=== PATIENT | female | born 1965 | race Caucasian/White ===

== ENCOUNTER → 2017-02-14 | Outpatient (CLI) | payer BC ==
[~2017-02-14] MED LIST: ATIVAN1 MG PO; Ativan PO; BUPROPION XL300 MG; BUSPAR30 MG; CARAFATE100 MG/ML PO; COZAAR25 MG PO; CYANOCOBAL1000 MCG/2 IM; Cozaar PO; DEPO-PROVER150 MG/ML IM; Depo-Provera IM; ERGOCALCIF50000 UNIT PO; FLINTSTONES E100 MCG PO; FLUOXETINE HCL20 MG; HYDROCHLOROTHIA25 MG PO; Hydrodiuril,Oretic,E PO; LOSARTAN POTASS25 MG; MEDROXYPROGESTERONE; MULTIVITAMIN1 EAC2 PO; OXYCODONE HCL15 MG; OXYCODONE HCL15 MG PO; PANTOPRAZOLE SO40 MG; PANTOPRAZOLE SO40 MG PO; PRILOSEC40 MG PO; PROZAC20 MG PO; PROzac PO; RANITIDINE HCL75 MG PO; TEMAZEPAM30 MG; THIAMINE HCL100 MG PO; Vicodin,Norco 5/325 PO; WELLBUTRIN XL150 MG PO; Wellbutrin XL PO; ZOFRAN ODT4 MG PO; oxyCODONE PO
== END | disposition home or self-care (01) ==
DX: R26.2 Difficulty in walking, not elsewhere classified (principal); M17.11 Unilateral primary osteoarthritis, right knee; M25.561 Pain in right knee; M25.661 Stiffness of right knee, not elsewhere classified; M62.81 Muscle weakness (generalized)
CPT/HCPCS: 97110 GP; 97150 GO; 97161 GP; 97165 GO

== ENCOUNTER 2017-02-27 06:50 | Inpatient (IN) | payer BC ==
[~2017-02-27] VITALS: Ht 170.2 cm; Wt 133.6 kg
[~2017-02-27 06:50] MED LIST changes: +METFORMIN HCL500 M4 PO; +NEURONTIN100 MG PO; +OMEPRAZOLE40 M1 PO
[2017-02-27 07:38] LABS: POINT-OF-CARE METER ID UU13113694
[2017-02-27 07:42] VITALS: BP 189/87
[2017-02-27 08:15] VITALS: BP 134/66
[2017-02-27 09:52] LABS: INTERNAL CONTROL VALID? YES
[2017-02-27 12:26] LABS: HEMATOCRIT 39.4 % (36.0-46.0); MCH 31.1 PG (29.0-34.0); MCHC 32.5 G/DL (30.0-36.0); MCV 95.9 FL (83-99); MEAN PLAT.VOLUME 10.8 uM^3 (9.5-12.4); PLATELET COUNT 282 K/uL (156-360); RBC DIS.WIDTH-CV 12.3 % (11.8-14.6); RBC DIS.WIDTH-SD 43.8 % (39-53); RED BLOOD COUNT 4.11 M/uL (3.80-5.20); WHITE BLOOD COUNT 7.7 K/uL (4.1-10.2)
[2017-02-27 13:00] VITALS: BP 152/70
[2017-02-27 13:10] LABS: POINT-OF-CARE METER ID UU13113712
[2017-02-27 15:44] VITALS: BP 139/65
[2017-02-27 16:14] LABS: POINT-OF-CARE METER ID UU13113712
[2017-02-27 20:24] VITALS: BP 178/98
[2017-02-27 21:51] LABS: POINT-OF-CARE METER ID UU13113712
[2017-02-28 00:30] VITALS: BP 191/84
[2017-02-28 04:14] VITALS: BP 145/68
[2017-02-28 06:45] LABS: HEMATOCRIT 36.4 % (36.0-46.0); MCV 95.5 FL (83-99)
[2017-02-28 06:54] LABS: ANION GAP 9 MEQ/L (2-14); CHLORIDE 99 MEQ/L (99-109); GFR ESTIMATE (CALCULATED) > 59 mL/min/; GLUCOSE 132 mg/dL (70-99); POTASSIUM 3.9 MEQ/L (3.7-5.4); SAMPLE HEMOLYSIS CHECK 0; SAMPLE ICTERIC CHECK 0; SAMPLE LIPEMIA CHECK 0; SODIUM 133 MEQ/L (136-147); UREA NITROGEN (BUN) 11 mg/dL (9-23)
[2017-02-28 08:00] VITALS: BP 195/94
[2017-02-28 11:49] VITALS: BP 148/70
[2017-02-28 11:51] LABS: POINT-OF-CARE METER ID UU13113712
[2017-02-28 16:05] VITALS: BP 151/73
[2017-02-28 16:47] LABS: POINT-OF-CARE METER ID UU13113712
[2017-02-28 20:03] VITALS: BP 181/75
[2017-02-28 21:50] LABS: POINT-OF-CARE METER ID UU13113712
[2017-03-01 00:30] VITALS: BP 174/74
[2017-03-01 04:25] VITALS: BP 148/69
[2017-03-01 07:31] LABS: POINT-OF-CARE METER ID UU13113712
[2017-03-01 08:00] VITALS: BP 136/61
[2017-03-01] MEDS ORDERED: SENNA PLUS TAB1 EACH PO (08:15)
[2017-03-01] MEDS ORDERED: CELECOXIB200 MG PO (08:16)
[2017-03-01] MEDS ORDERED: LOVENOX40 MG/0.4 SC (08:16)
[2017-03-01] MEDS ORDERED: OXYCONTIN15 MG PO (08:16)
[2017-03-01] MEDS ORDERED: ENDOCET 5-3251 EACH PO (08:16)
[2017-03-01 11:27] LABS: POINT-OF-CARE METER ID UU13113712
[2017-03-01 12:00] VITALS: BP 178/71
== END 2017-03-01 15:24 | DRG 470 ==
LOC: 2SOUTH → 3WEST 12:37 → 2SOUTH 13:55 → 3WEST 03-01 15:24
PROVIDERS: Orthopaedic Surgery
PROC: 0SRC0J9 Replacement of Right Knee Joint with Synthetic Substitute, Cemented, Open Approach (ICD-10-PCS; principal; 2017-02-27)
DX: M17.11 Unilateral primary osteoarthritis, right knee (principal); I10 Essential (primary) hypertension; G89.29 Other chronic pain; M54.2 Cervicalgia; E66.01 Morbid (severe) obesity due to excess calories; Z68.42 Body mass index [BMI] 45.0-49.9, adult; Z98.84 Bariatric surgery status; R73.03 Prediabetes; D50.9 Iron deficiency anemia, unspecified; E53.8 Deficiency of other specified B group vitamins; E55.9 Vitamin D deficiency, unspecified; G47.33 Obstructive sleep apnea (adult) (pediatric); E80.4 Gilbert syndrome; E28.2 Polycystic ovarian syndrome; E78.5 Hyperlipidemia, unspecified; K21.9 Gastro-esophageal reflux disease without esophagitis; G25.81 Restless legs syndrome; F41.9 Anxiety disorder, unspecified; F32.9 Major depressive disorder, single episode, unspecified; Z82.49 Family history of ischemic heart disease and other diseases of the circulatory system; Z83.3 Family history of diabetes mellitus
CPT/HCPCS: 73560; 80048; 82948; 84703; 85014; 85018; 85027; C1713; J0131; J0330; J0690; J1100; J1170; J1200; J1650; J1815; J2250; J2405; J3010; J7050

== ENCOUNTER 2017-06-04 22:04 | Inpatient (IN) | payer BC ==
[~2017-06-04] VITALS: Ht 170.2 cm; Wt 126.5 kg
[~2017-06-04 22:04] MED LIST changes: +CELECOXIB200 MG PO; +ENDOCET 5-3251 EACH PO; +LOVENOX40 MG/0.4 SC; +OXYCONTIN15 MG PO; +SENNA PLUS TAB1 EACH PO
[2017-06-05 06:03] VITALS: BP 133/68
[2017-06-05 06:15] LABS: POINT-OF-CARE METER ID UU14174212
[2017-06-05 09:44] LABS: POINT-OF-CARE METER ID UU13113675; POINT-OF-CARE USER ID 515036437
[2017-06-05 10:07] LABS: HEMATOCRIT 36.5 % (36.0-46.0); MCH 30.3 PG (29.0-34.0); MCHC 32.3 G/DL (30.0-36.0); MCV 93.6 FL (83-99); MEAN PLAT.VOLUME 10.3 uM^3 (9.5-12.4); PLATELET COUNT 254 K/uL (156-360); RBC DIS.WIDTH-CV 12.9 % (11.8-14.6); RBC DIS.WIDTH-SD 44.2 % (39-53); WHITE BLOOD COUNT 10.7 K/uL (4.1-10.2)
[2017-06-05 12:14] VITALS: BP 169/77
[2017-06-05 12:29] LABS: POINT-OF-CARE METER ID UU13113720
[2017-06-05 16:03] VITALS: BP 183/81
[2017-06-05 16:29] LABS: POINT-OF-CARE METER ID UU13113712
[2017-06-05 19:38] VITALS: BP 184/81
[2017-06-05 22:00] LABS: POINT-OF-CARE METER ID UU13113712
[2017-06-06 00:29] VITALS: BP 164/76
[2017-06-06 04:30] VITALS: BP 148/64
[2017-06-06 06:40] LABS: HEMATOCRIT 34.6 % (36.0-46.0); MCV 95.3 FL (83-99)
[2017-06-06 07:35] LABS: ANION GAP 8 MEQ/L (2-14); CHLORIDE 99 MEQ/L (99-109); GFR ESTIMATE (CALCULATED) > 59 mL/min/; GLUCOSE 113 mg/dL (70-99); POTASSIUM 3.7 MEQ/L (3.7-5.4); SODIUM 135 MEQ/L (136-147); UREA NITROGEN (BUN) 7 mg/dL (9-23)
[2017-06-06 07:59] LABS: POINT-OF-CARE METER ID UU13113712
[2017-06-06 08:28] VITALS: BP 151/79
[2017-06-06 11:48] LABS: POINT-OF-CARE METER ID UU13113712
[2017-06-06 12:07] VITALS: BP 150/71
[2017-06-06 15:52] VITALS: BP 152/70
[2017-06-06 16:15] LABS: POINT-OF-CARE METER ID UU13113712
[2017-06-06 19:52] VITALS: BP 125/58
[2017-06-06 21:42] LABS: POINT-OF-CARE METER ID UU13113712
[2017-06-07 00:30] VITALS: BP 142/66
[2017-06-07 04:30] VITALS: BP 136/62
[2017-06-07 07:19] LABS: HEMATOCRIT 31.2 % (36.0-46.0); MCV 92.6 FL (83-99)
[2017-06-07 07:51] LABS: POINT-OF-CARE METER ID UU13113712
[2017-06-07] MEDS ORDERED: BISAC-EVAC10 MG PR (08:21)
[2017-06-07] MEDS ORDERED: LOVENOX40 MG/0.4 SC (08:23)
[2017-06-07] MEDS ORDERED: OXYCODONE HCL10 MG PO (08:23)
[2017-06-07] MEDS ORDERED: CELECOXIB200 MG PO (08:23)
[2017-06-07 08:28] VITALS: BP 189/72
[2017-06-07 11:38] LABS: POINT-OF-CARE METER ID UU13113712
[2017-06-07 11:58] VITALS: BP 152/65
== END 2017-06-07 14:09 | DRG 470 ==
LOC: 2SOUTH → ENRESERV 22:04 → 2SOUTH 06-05 05:45 → 3WEST 06-05 05:45 → 2SOUTH 06-05 11:49 → 3WEST 06-07 14:09
PROVIDERS: Orthopaedic Surgery
PROC: 0SRD0J9 Replacement of Left Knee Joint with Synthetic Substitute, Cemented, Open Approach (ICD-10-PCS; principal; 2017-06-05)
DX: M17.12 Unilateral primary osteoarthritis, left knee (principal); M47.12 Other spondylosis with myelopathy, cervical region; Z96.651 Presence of right artificial knee joint; K21.9 Gastro-esophageal reflux disease without esophagitis; R73.03 Prediabetes; I10 Essential (primary) hypertension; E78.5 Hyperlipidemia, unspecified; F41.8 Other specified anxiety disorders; D50.9 Iron deficiency anemia, unspecified; M47.816 Spondylosis without myelopathy or radiculopathy, lumbar region; G47.33 Obstructive sleep apnea (adult) (pediatric); E55.9 Vitamin D deficiency, unspecified; E53.8 Deficiency of other specified B group vitamins; E66.3 Overweight; Z68.41 Body mass index [BMI] 40.0-44.9, adult; G89.29 Other chronic pain
CPT/HCPCS: 73560; 80048; 82948; 85014; 85018; 85027; 90686; 97530 GP; C1713; J0330; J0690; J1170; J1650; J1815; J2250; J2405; J2550; J3010; J7050